=== PATIENT | male | born 1970 | race Caucasian/White ===

== ENCOUNTER 2019-04-30 19:11 | Emergency (ER) | payer MEDICAID, OTHER ==
[~2019-04-30] VITALS: Ht 175.3 cm; Wt 76.4 kg
[2019-04-30 21:09] VITALS: BP 124/72
== END 2019-04-30 21:42 | disposition home or self-care (01) ==
LOC: EDBD 19:11 → ED 21:30
DX: F10.120 Alcohol abuse with intoxication, uncomplicated (principal); Y90.0 Blood alcohol level of less than 20 mg/100 ml; R41.82 Altered mental status, unspecified
CPT/HCPCS: 36415; 70450; 80053; 80307; 85025; 93005; 99284